=== PATIENT | female | born 1970 | race Caucasian/White ===

== ENCOUNTER 2022-07-10 18:48 | Emergency (ER) | payer OTHER ==
[2022-07-10] MEDS ORDERED: Sodium Chloride 0.9% 10 ML Syringe FLUSH PRN (19:38)
[2022-07-10] MEDS ORDERED: Sodium Chloride 0.9% 75 ML IV SCH (20:15)
[2022-07-10] MEDS ORDERED: Iopamidol 612 MG/ML 100 ML Bottle IV SCH (20:15)
[2022-07-10 20:24] LABS: ESTIMATED GFR 62 mL/min (>60)
== END 2022-07-10 21:33 | disposition home or self-care (01) ==
LOC: JP.ED 18:48
DX: R10.13 Epigastric pain (principal); Z79.899 Other long term (current) drug therapy
CPT/HCPCS: 36415; 74177; 80053; 81001; 83605; 83690; 84484; 85025; 85379; 86140; 93005; 99284; J3490; Q9967